=== PATIENT | female | born 1940 | race Caucasian/White ===

== ENCOUNTER 2017-02-06 18:20 | Emergency (ER) | payer OTHER ==
[2017-02-06 18:29] VITALS: BP 163/95; PULSE 116; TEMP 98.1; BMI 22.6
--- NOTE | 2017-02-06 18:31 | PDOC ---
Rapid Medical Evaluation Time Seen by Provider: 02/06/17 18:23 Medical Evaluation: Allergies Allergy/AdvReac Type Severity Reaction Status Date / Time No Known Allergies Allergy Verified 02/13/16 13:27 02/06/17 18:24 Pt here with c/o: low back pain x1 day, no dysuria, fever, or abd pain, no trauma, no back sx, hx scoliosis of the spine Pt on exam:: rt cva tenderness, no rash, difficulty taking a deep breath, rt thoracic pain at t-9-l2 level pt ordered for ua, cxr and lumbar thoracic xray Discharge Disposition - Diagnosis Right-sided back pain - Referrals - Patient Instructions - Post Discharge Activity
[2017-02-06 20:54] LABS: URINE APPEARANCE CLEAR; URINE BILIRUBIN 1+ (NEGATIVE); URINE BLOOD TRACE-INTA (NEGATIVE); URINE COLOR LT. YELLOW; URINE GLUCOSE (UA) NEGATIVE (NEGATIVE); URINE KETONE 3+ (NEGATIVE); URINE NITRITE NEGATIVE (NEGATIVE); URINE PROTEIN NEGATIVE (NEGATIVE); URINE UROBILINOGEN 0.2 mg/dL (0.2-1.0)
[2017-02-07 10:39] LABS: URINE LEUK ESTERASE TRACE (NEGATIVE)
[2017-02-07 11:00] LABS: URINE BACTERIA MODERATE /hpf (NEGATIVE)
== END 2017-02-06 22:39 | disposition left against medical advice (07) ==
LOC: JER 18:20
DX: R10.31 Right lower quadrant pain (principal)
CPT/HCPCS: 71020-TC; 72070-TC; 72100-TC; 81003; 81015; 99281-25